=== PATIENT | female | born 1955 | race Asian ===

== ENCOUNTER 2017-07-14 06:59 | Day surgery (SDC) | payer OTHER ==
[2017-07-11 11:21] VITALS: BMI 20.4
[2017-07-14] MEDS ORDERED: PROPOFOL 20 ML ONE ×3 (07:48)
[2017-07-14] MEDS ORDERED: LIDOCAINE HCL/PF 1% SDV 5ML VIAL ONE (07:49)
[2017-07-14 08:44] VITALS: TEMP 98.3
[2017-07-14 09:33] LABS: MCH 27.3 pg (25.7-33.7); MCHC 33.5 g/dl (32.0-36.0); MEAN CELL VOLUME 81.6 fl (80-96); MEAN PLT VOLUME 9.5 fl (7.5-11.1); PLATELET COUNT 209 K/MM3 (134-434); RDW 13.1 % (11.6-15.6); WHITE BLOOD COUNT 4.9 K/mm3 (4.0-10.0)
[2017-07-14 09:59] LABS: INR 1.09 (0.82-1.09); PROTHROMBIN TIME (PATIENT) 12.3 SEC (9.98-11.88)
[2017-07-14 10:00] LABS: ALBUMIN 4.1 g/dl (3.4-5.0); ALK PHOS 55 U/L (45-117); ANION GAP 7 (8-16); BILIRUBIN,TOTAL 0.4 mg/dL (0.2-1.0); CO2 27 mmol/L (21-32); CREATININE 0.5 mg/dL (0.55-1.02); GLUCOSE,RANDOM 137 mg/dL (74-106); SGOT/AST 20 U/L (15-37); SGPT/ALT 38 U/L (12-78); TOT PROT 7.5 g/dl (6.4-8.2)
[2017-07-14 10:18] VITALS: BP 138/70; PULSE 68
--- NOTE | 2017-07-15 12:11 | PATH ---
Surgical Pathology Report Patient Name: SKIP SOTO [facility]. Rec. #: [id number] /Age/Gender: 1955 (Age: 62) / F Account: [id number] Location: [facility]SU-ENDOSCOPY Taken: 07/14/2017 Received: 07/14/2017 Reported: 07/15/2017 Physicians: Arnav Islas M.D. Specimen(s) Received A: POLYP RIGHT COLON B: POLYP ROXIMAL TRANSVERSE COLON C: BX RECTAL MASS Clinical History Rectal bleeding, rule out cancer Diverticulosis, rectal mass, colon polyps Final Diagnosis A. COLON, RIGHT, POLYPECTOMY: TUBULAR ADENOMA. B. COLON, TRANSVERSE, BIOPSY: COLONIC MUCOSA WITH NO PATHOLOGIC CHANGES. NO ACTIVE COLITIS, ARCHITECTURAL DISTORTION, GRANULOMATA, OR DYSPLASIA IDENTIFIED. NO MICROSCOPIC COLITIS IDENTIFIED (NO LYMPHOCYTIC OR COLLAGENOUS COLITIS IDENTIFIED). C. 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 Comment: This case was discussed with Dr. Islas on July 15, 2017. MisMatch [employer] Protein analysis by immunohistochemistry is pending, and a report will follow. Electronically Signed Kendrick Ortiz M.D. Addendum Reported: 07/17/2017 Addendum Diagnosis Immunohistochemical stains for MisMatch Repair Protein Analysis performed on Specimen C at [facility] in [place], [place] ([id number]) and interpreted at [facility] show the following: RESULTS: HMLH-1 INTACT NUCLEAR EXPRESSION HMSH-2 INTACT NUCLEAR EXPRESSION HMSH-6 INTACT NUCLEAR EXPRESSION PMS2 INTACT NUCLEAR EXPRESSION INTERPRETATION: No loss of nuclear expression of MMR proteins: low probability of microsatellite instability-high (MSI-H) Kendrick Ortiz M.D. Gross Description A. Received in formalin, labeled "polyp right colon" is a yeh, polypoid portion of soft tissue measuring 0.5 cm. in greatest dimension. The specimen is submitted in toto in one cassette. B. Received in formalin, labeled "polyp proximal transverse colon" is a yeh, irregular portion of soft tissue measuring 0.2 cm. in greatest dimension. The specimen is submitted in toto in one cassette. C. Received in formalin, labeled "biopsy rectal mass" are 5 yeh, irregular portions of soft tissue ranging from 0.2-0.5 cm. in greatest dimension. The specimens are submitted in toto in one cassette. 07/14/201707/14/2017
== END 2017-07-14 10:18 | disposition home or self-care (01) ==
LOC: JASU-ENDO 06:59
PROVIDERS: ATTEND Internal Medicine Gastroenterology
PROC: 0DBL8ZX Excision of Transverse Colon, Via Natural or Artificial Opening Endoscopic, Diagnostic (ICD-10-PCS; 2017-07-14)
PROC: 0DBF8ZX Excision of Right Large Intestine, Via Natural or Artificial Opening Endoscopic, Diagnostic (ICD-10-PCS; 2017-07-14)
PROC: 0DBP8ZX Excision of Rectum, Via Natural or Artificial Opening Endoscopic, Diagnostic (ICD-10-PCS; 2017-07-14)
PROC: 0DBK8ZX Excision of Ascending Colon, Via Natural or Artificial Opening Endoscopic, Diagnostic (ICD-10-PCS; principal; 2017-07-14 08:00)
DX: Z12.11 Encounter for screening for malignant neoplasm of colon (principal); K62.5 Hemorrhage of anus and rectum; C20 Malignant neoplasm of rectum; D12.2 Benign neoplasm of ascending colon; D12.3 Benign neoplasm of transverse colon; K57.30 Diverticulosis of large intestine without perforation or abscess without bleeding
CPT/HCPCS: 36415; 80053; 82378; 85027; 85610; 86140; 88305-TC